=== PATIENT | male | born 1970 | race Caucasian/White ===

== ENCOUNTER 2020-10-10 09:07 | Observation (INO) ==
[2020-10-10] MEDS ORDERED: KETOROLAC 30 MG/ML VIAL IV STA (09:44)
[2020-10-10] MEDS ORDERED: ACETAMINOPHEN 1000 MG/100 ML IV IV STA (09:44)
[2020-10-10] MEDS ORDERED: SODIUM CHLORIDE 0.9% 1000ML 1,000 ML IV ONE (09:44)
[2020-10-10] MEDS ORDERED: OPTIRAY 320 100ml IV ONE (09:52)
[2020-10-10 10:09] LABS: Basophils # (auto) 0.04 K/uL (0-0.2); Basophils % (auto) 0.2 %; Eosinophils # (auto) 0.24 K/uL (0-0.5); Eosinophils % (auto) 1.3 %; Hematocrit (blood only) 29.8 % (42-52); Hemoglobin 10.3 g/dL (14.0-18.0); Immature Granulocytes # (auto) 0.21 K/uL (0.00-0.02); Immature Granulocytes % (auto) 1.2 %; Lymphocytes # (auto) 2.41 K/uL (1.2-3.4); Lymphocytes % (auto) 13.5 %; Mean Corpuscular Hemoglobin 31.7 pg (25-34); Mean Corpuscular Hgb Conc 34.6 g/dL (32-36); Mean Corpuscular Volume 91.7 fL (80-100); Mean Platelet Volume 8.6 fL (7.4-10.4); Monocytes # (auto) 1.02 K/uL (0.11-0.59); Monocytes % (auto) 5.7 %; Neutrophils # (auto) 13.96 K/uL (1.4-6.5); Neutrophils % (auto) 78.1 %; Platelet Count 391 K/uL (130-400); RDW Coefficient of Variation 13.8 % (11.5-14.5); RDW Standard Deviation 46.3 fL (36.4-46.3); Red Blood Count 3.25 M/uL (4.7-6.1); White Blood Count 17.88 K/uL (4.8-10.8)
[2020-10-10 10:37] LABS: Albumin Level 2.2 gm/dl (3.4-5.0); BUN Creatinine Ratio 17.1 (10-20); Calcium 6.8 mg/dl (8.5-10.1); Creatinine Clr Calc Pharmacy 106.7 ml/min; Est GFR (Non-African American) 104.4 ml/min; Potassium 3.4 mmol/L (3.5-5.1)
[2020-10-10 10:42] LABS: Albumin Globulin Ratio 0.6 (0.9-2); Bilirubin,Total 0.5 mg/dl (0.2-1); C Reactive Protein 2.13 mg/dl (0-0.29); Globulin 3.4 gm/dl (2.5-4.0); Total Protein 5.6 gm/dl (6.4-8.2)
--- NOTE | 2020-10-10 12:10 | CT Scan Report ---
CT OF THE NECK WITH IV CONTRAST CLINICAL HISTORY: L neck cellulitis vs abscess COMPARISON STUDY: No previous studies for comparison. TECHNIQUE: Following IV administration of 94 mL of Optiray, helical axial images of the neck were ob tained. Sagittal and coronal reconstructions were viewed. Automated exposure control was utilized f or the study. A dose lowering technique was utilized adhering to the principles of ALARA. CT DOSE: 589.60 mGy.cm FINDINGS: Visualized portions of the intracranial contents are unremarkable. Orbits are unremarkable . Mastoid air cells are clear. There is mild sinus mucosal thickening. Old fracture of the medial wal l of the right orbit is noted. Multiple absent teeth are noted. There are numerous periapical lucenci es/abscesses within the mandibular and maxillary teeth. The tonsils are enlarged. No discrete lesion is noted. Epiglottis is normal. Glottis is closed. There is no soft tissue gas within the neck. Note is made of moderate left neck infiltration centered on the left parotid gland and left sternocleidoma stoid muscle. Note is made of a 1.6 cm hypodense focus within the left sternocleidomastoid muscle on image 197 of 491 there is asymmetric enlargement of this muscle with adjacent infiltration. There is also mild asymmetric enlargement and hypervascularity of the left parotid gland. The left platysma is thickened. There is a 1.5 cm cystic peripherally enhancing focus within the left parotid gland on im age 173. Major vasculature of the neck is patent. No acute fracture or suspicious lesion is identifie d within the visualized skeletal structures. There is no peritonsillar abscess. There are multiple mi ldly enlarged left cervical lymph nodes. IMPRESSION: 1. Left neck subcutaneous infiltration and skin thickening with thickening of the left platysma consi stent with cellulitis. Asymmetric enlargement of the left sternocleidomastoid muscle which contains a 1.6 cm hypodense focus with subtle peripheral enhancement. This favors myositis with developing intr amuscular abscess. This infectious process is most likely secondary to left parotitis although a prim zheng myositis could appear similar. 2. Asymmetric enlargement and hypervascularity of the left parotid gland. This favors parotitis. 3. 1.5 cm cystic peripherally enhancing focus within the left parotid gland. This likely represents a left parotid gland lesion such as a Bur[place]'s tumor. However, no abscess or enlarged lymph node coul d appear similar. A follow-up neck CT in 3 months following resolution of this infectious process is recommended. 4. Multiple mildly enlarged left cervical lymph nodes which are likely reactive. 5. Mild tonsillar enlargement without discrete lesion although mucosal lesions may be occult by CT. ACT 112: Negative or not required by law. Electronically signed by: Colin Godfrey M.D. 10/10/2020 12:09 PM
[2020-10-10] MEDS ORDERED: AMPICILLIN/SULBACTAM SOD 3,000 MG in 0.9 % SODIUM CHLORIDE 100 ML IV STA (12:53)
[2020-10-10] MEDS ORDERED: LACTATED RINGER'S 1,000 ML IV SCH (14:15)
--- NOTE | 2020-10-10 14:27 | History & Physical Report ---
Date of Service October 10, 2020 Assessment & Plan (1) Parotid abscess: Admit- NPO until evaluated by ENT - may have sips of water and medications - Lemon wedges to assist with salivation - Unasyn 1.5 GM IV q6 hours - Tylenol and Ice for pain (2) Cellulitis: Surrounding erythema- and tenderness from parotiditis noted above - CK sent to evaluate for concern of myositis - Unasyn as above (3) Sepsis: SIRS- 2; qSOFA- 0 - Tachycardic with elevated WBC, NLR 7:1 - Blood cultures drawn prior to antibiotics - Lactate pending - CRP 2.13, ESR 59 - Hemodynamics improved on evaluation in the EMD - MAPS >65 (4) DMII (diabetes mellitus, type 2): Controlled- on oral agents - Hold Metformin/Glipizide - ACHS glucose checks- Add subq coverage if >200 and/or when patient starts eating - NPO as above (5) HLD (hyperlipidemia): Continue Atorvastatin 40 mg daily (6) HTN (hypertension): Continue Lisinopril, HCTZ - If hemodynamic status changes will hold - currently well perfused (7) Hypocalcemia: Likely related to poor intake in the setting of his oral infection - Concurrent with low ablumin, low sodium, and low albumin- Corrected 8.4 - LR at 80 ml per hour (8) Hyponatremia: As above (9) Bipolar disorder: Bipolar Vs Depression history- no records, Denies any suicidal ideations or psychological breaks - Continue Zoloft (10) Gout: No acute needs- Allopurinol on hold, follow renal function (11) Hypokalemia: Replace with potassium chloride 20 mEq p.o. x1 Follow BMP and magnesium Could be secondary to HCTZ (12) Elevated alkaline phosphatase level: Alkaline phosphatase in the 300s Could be due to to fatty liver, bony disease? Follow LFTs in the morning and if remains elevated, pursue further work-up but could be as an outpatient (13) Anemia: Hemoglobin 10.38, MCV 91 Could be chronic disease Check iron studies, folate, B12, TSH in the morning Follow-up as an outpatient (14) DVT prophylaxis: SCDs only for now in case of need for surgery tomorrow Disposition-admit to medical floor History of Present Illness Primary Care Provider: Elvia Rawls PA-C 50 YOM with past medical history of gout, HLD, HTN, DMII, chronic pain, reports continued smoker. The patient comes in to the EMD today for a week history of left sided mouth/jaw pain, he has noted that his left side of his face and neck have been more tender to chew with and to palpation. He also noticing the area of his cheek getting larger. He denies any fevers or chills, but does endorse increase in left eye lacrimation. he denies any bad tastes in mouth or drainage inside his mouth or throat. He has not tried anything to make this better. In the EMD the patient had a CT with IV contrast of his neck done, which revealed enlargement of the left sternocleidomastoid muscle, with peripheral enhancement as well as a left parotiditis. The [facility] provider has consulted ENT Dr. Huerta and he was given 3GM Unasyn in the EMD. The patient will be admitted to the hospitalist service, continue IV ABX, NPO, and following clinical response. The patient is staying in and out of hotels as he "does not want to go to his house". He has not gotten his COVID vaccine. COVID test pending in the EMD. Allergies Allergy/AdvReac Type Severity Reaction Status Date / Time No Known Allergies Allergy Unverified 10/10/20 10:18 Home Medications Medication Instructions Recorded Confirmed Type allopurinol 300 mg PO QAM 08/30/18 10/10/20 History atorvastatin 40 mg PO QAM 08/30/18 10/10/20 History gabapentin 800 mg PO TID 08/30/18 10/10/20 History glipizide 5 mg PO BID 08/30/18 10/10/20 History metformin 500 mg PO BID 08/30/18 10/10/20 History hydrochlorothiazide 12.5 mg PO QAM 10/02/20 10/10/20 History lisinopril [Zestril] 20 mg PO QAM 10/02/20 10/10/20 History sertraline [Zoloft] 100 mg PO HS 10/02/20 10/10/20 History omeprazole 40 mg PO DAILY 10/10/20 10/10/20 History Past Med/Surg History Medical History Bipolar disorder DMII (diabetes mellitus, type 2) Gout HLD (hyperlipidemia) HTN (hypertension) Family History Father Cancer Diabetes Dyslipidemia Mother Cancer Diabetes Other COPD (chronic obstructive pulmonary disease) Coronary heart disease Hypertension Social History Smoking Status: Current every day smoker Tobacco Type: Cigarettes Second Hand Exposure: Yes; Hx Alcohol Use: Yes Hx Substance Use: No Preferred Language: Egyptian Communication Ability: Effective Beliefs That Will Affect Care: Shinto marital status: Single Current Living Situation: Other Current Living Situation Comment: Lives at a local motel current occupational status: employed Feels Safe at Home: No Is there a partner from a previous relationship who is making you feel unsafe now?: No Any Concerns about Your Family Situation: No Would You Like to Speak to Someone About Your Situation: No Assistive Devices: None Review of Systems Review of Systems: REVIEW OF SYSTEMS: Constitutional: No fever, sweats or chills Eyes: (+) eye lacrimation, No diplopia, no worsening or blurred vision ENT: (+) oral pain jawpain, neck swelling, normal hearing, no trouble swallowing Respiratory: No cough, sputum, dyspnea at rest or on exertion Cardiovascular: No chest pain, tightness or palpitations Abdomen: No pain, nausea, vomiting, diarrhea or constipation Musculoskeletal: No joint pain, calf pain, swelling Neurologic: No weakness, numbness/tingling, or balance problems Psychiatric: No anxiety or depression Skin: No rash or itch Physical Exam Physical Exam: PHYSICAL EXAM: General: awake, alert, no apparent distress Head: Normocephalic, atraumatic ENT: PERRL, EOMI, no pharyngeal exudate, mucous membranes moist, pain with palpation to left face and neck, this extends to the trapezius as well. He has erythema to his sternocleidal, oral cavity without erythema or draining, but with tenderness to lateral mandible, lymph nodes noted to submandibular and anterior cervical enlargement. Hypopharynx not enlarged, voice normal and is tolerating his secretions. Oral dentition is poor. Neuro: AAO x 3, speech clear and appropriate, strength intact bilaterally 5/5, sensation intact and equal all extremities and dermatomes, no pronator drift Chest: equal rise and fall of the chest, no accessory muscle use, no heaves or thrills, Clear to auscultation, on room air, Cardiac: Regular rate and rhythm, telemetry reviewed, skin warm dry, cap refill <3 seconds, peripheral pulses +2 no JVD, no murmur, no JVD, no edema GI: NABS x 4 quadrants, soft, nontender to palpation, no rebound, guarding or tenderness : Spontaneously voiding, no pain, no CVA tenderness, Extremities: Normal inspection, no peripheral edema or erythema, calfs nontender to palpation Psych: Normal mood and affect Skin: no rash or erythema Results & Data Results & Data ([facility]) Vital Signs (Past 12 Hours) Vital Signs Temp Pulse Pulse Resp BP BP Pulse Ox 10/10/20 12:20 89 18 122/93 99 10/10/20 10:51 90 18 115/86 100 10/10/20 09:10 36.5 C 110 H 20 116/95 99 Laboratory Results Abnormal lab results 10/10/20 10/10/20 10/10/20 Range/Units 09:57 09:57 09:57 WBC 17.88 H (4.8-10.8) K/uL RBC 3.25 L (4.7-6.1) M/uL Hgb 10.3 L (14.0-18.0) g/dL Hct 29.8 L (42-52) % Neut # (Auto) 13.96 H (1.4-6.5) K/uL Bracken # (Auto) 1.02 H (0.11-0.59) K/uL Immature Gran # (Auto) 0.21 H (0.00-0.02) K/uL ESR 59 H (0-15) mm/hr Sodium 131 L (136-145) mmol/L Potassium 3.4 L (3.5-5.1) mmol/L Carbon Dioxide 20 L (21-32) mmol/L Glucose 102 H (70-99) mg/dl Calcium 6.8 L (8.5-10.1) mg/dl Alkaline Phosphatase 325 H (45-117) U/L C-Reactive Protein 2.13 H (0-0.29) mg/dl Total Protein 5.6 L (6.4-8.2) gm/dl Albumin 2.2 L (3.4-5.0) gm/dl Albumin/Globulin Ratio 0.6 L (0.9-2) Diagnostic Findings Soft Tissue Neck CT 10/10/20 09:42 CT OF THE NECK WITH IV CONTRAST CLINICAL HISTORY: L neck cellulitis vs abscess COMPARISON STUDY: No previous studies for comparison. TECHNIQUE: Following IV administration of 94 mL of Optiray, helical axial images of the neck were obtained. Sagittal and coronal reconstructions were viewed. Automated exposure control was utilized for the study. A dose lowering technique was utilized adhering to the principles of ALARA. CT DOSE: 589.60 mGy.cm FINDINGS: Visualized portions of the intracranial contents are unremarkable. Orbits are unremarkable. Mastoid air cells are clear. There is mild sinus mucosal thickening. Old fracture of the medial wall of the right orbit is noted. Multiple absent teeth are noted. There are numerous periapical lucencies/abscesses within the mandibular and maxillary teeth. The tonsils are enlarged. No discrete lesion is noted. Epiglottis is normal. Glottis is closed. There is no soft tissue gas within the neck. Note is made of moderate left neck infiltration centered on the left parotid gland and left sternocleidomastoid muscle. Note is made of a 1.6 cm hypodense focus within the left sternocleidomastoid muscle on image 197 of 491 there is asymmetric enlargement of this muscle with adjacent infiltration. There is also mild asymmetric enlargement and hypervascularity of the left parotid gland. The left platysma is thickened. There is a 1.5 cm cystic peripherally enhancing focus within the left parotid gland on image 173. Major vasculature of the neck is patent. No acute fracture or suspicious lesion is identified within the visualized skeletal structures. There is no peritonsillar abscess. There are multiple mildly enlarged left cervical lymph nodes. IMPRESSION: 1. Left neck subcutaneous infiltration and skin thickening with thickening of the left platysma consistent with cellulitis. Asymmetric enlargement of the left sternocleidomastoid muscle which contains a 1.6 cm hypodense focus with subtle peripheral enhancement. This favors myositis with developing intramuscular abscess. This infectious process is most likely secondary to left parotitis although a primary myositis could appear similar. 2. Asymmetric enlargement and hypervascularity of the left parotid gland. This f avors parotitis. 3. 1.5 cm cystic peripherally enhancing focus within the left parotid gland. This likely represents a left parotid gland lesion such as a Rigoberto's tumor. However, no abscess or enlarged lymph node could appear similar. A follow-up neck CT in 3 months following resolution of this infectious process is recommended. 4. Multiple mildly enlarged left cervical lymph nodes which are likely reactive. 5. Mild tonsillar enlargement without discrete lesion although mucosal lesions may be occult by CT. Electronically signed by: Colin Godfrey M.D. 10/10/2020 12:09 PM Medications Administered Discontinued Medications Acetaminophen (Acetaminophen 1000 Mg/100 Ml Iv) 1,000 mg IV NOW STA Stop: 10/10/20 09:45 Last Admin: 10/10/20 10:03 Dose: 1,000 mg Documented by: [id number] Sodium Chloride (Nss 1000ml) 1,000 mls @ 999 mls/hr IV .Q1H1M ONE Stop: 10/10/20 10:44 Last Infusion: 10/10/20 10:54 Dose: 0 mls/hr Documented by: [id number] Admin: 10/10/20 10:00 Dose: 999 mls/hr Documented by: [id number] Ampicillin Sodium/Sulbactam Sodium 3,000 mg/ Sodium Chloride 108 mls @ 200 mls/hr IV NOW STA; Protocol Stop: 10/10/20 13:25 Last Admin: 10/10/20 13:33 Dose: 200 mls/hr Documented by: [id number] Ioversol (Optiray 320 100ml) 94 ml IV ONCE ONE Stop: 10/10/20 09:53 Last Admin: 10/10/20 09:53 Dose: 94 ml Documented by: [id number] Ketorolac Tromethamine (Ketorolac 30 Mg/Ml Vial) 30 mg IV NOW STA Stop: 10/10/20 09:45 Last Admin: 10/10/20 10:03 Dose: 30 mg Documented by: [id number] ECG Additional Comments: Pending at time of admission Code Status & VTE Plan Code Status CODE: FULL VTE: SCD's, Heparin 5000 units BID VTE Prophylaxis Plan VTE Prophylaxis will be ordered: Yes Supervising Physician Co-Signing Physician Notes KINDERGARTNER Supervision note: I have personally seen and examined the patient and discussed and verified the sampson points of the history and physical along with the plan with JADEN Flores with the following exceptions and/or additions: Patient presents with worsening left-sided face and neck pain and swelling. He denies any fevers or chills at home. He has not been to a dentist in 5 years and he continues to smoke daily. History and ROS reviewed as above Vitals reviewed Gen: AAOx3, NAD HEENT: Anicteric sclerae, EOMI, left-sided neck exquisitely tender with induration and palpable mass in the left neck and overlying erythema, oropharynx with missing dentition CV: RRR no mgr nl S1S2 Pulm: CTAB no wcr Abd: +BS soft NT ND no masses or hernias Ext: No edema, no calf tenderness Skin: No rashes, warm/dry Neuro: Full strength throughout Laboratory values and imaging reviewed 50-year-old male here with history as above, with left sided parotid mass and left-sided myositis and possibly developing intramuscular abscess. Continue with IV antibiotics as above Pain control with Tylenol, ice packs Other work-up as above Appreciate ENT consultation He should follow-up with a dentist or oral surgeon after discharge for dental abscesses PG Care Time/CCT Total # of Minutes Spent Total Time Spent with Patient: Total time spent is greater than 50% in coordination of care (as documented) at patient's floor/unit and/or counseling patient: Coding Level of Care Code 21060 Initial Inpt Care Lvl 3 Diagnoses Parotid abscess K11.3 Cellulitis L03.221 Site of cellulitis: neck Sepsis A41.9 Sepsis acute organ dysfunction status: without acute organ dysfunction Sepsis type: sepsis due to unspecified organism DMII (diabetes mellitus, type 2) E11.9 Diabetes mellitus complication status: without complication Diabetes mellitus intermediate project manager insulin use: without group home use HLD (hyperlipidemia) E78.5 Hyperlipidemia type: unspecified HTN (hypertension) I10 Hypertension type: essential hypertension Hypocalcemia E83.51 Hyponatremia E87.1 Bipolar disorder F31.9 Active/Remission status: remission status unspecified Gout M10.00 Chronicity: unspecified Gout etiology: idiopathic Gout site: unspecified site Hypokalemia E87.6 Elevated alkaline phosphatase level R74.8 Anemia D64.9 DVT prophylaxis Z29.9 (1) Gout Chronicity: unspecified Gout etiology: idiopathic Gout site: unspecified site Qualified Code(s): M10.00 - Idiopathic gout, unspecified site (2) DMII (diabetes mellitus, type 2) Diabetes mellitus complication status: without complication Diabetes mellitus group home insulin use: without group home use Qualified Code(s): E11.9 - Type 2 diabetes mellitus without complications (3) Bipolar disorder Active/Remission status: remission status unspecified Qualified Code(s): F31.9 - Bipolar disorder, unspecified (4) Cellulitis Site of cellulitis: neck Qualified Code(s): L03.221 - Cellulitis of neck (5) HLD (hyperlipidemia) Hyperlipidemia type: unspecified Qualified Code(s): E78.5 - Hyperlipidemia, unspecified (6) Sepsis Sepsis acute organ dysfunction status: without acute organ dysfunction Sepsis type: sepsis due to unspecified organism Qualified Code(s): A41.9 - Sepsis, unspecified organism (7) HTN (hypertension) Hypertension type: essential hypertension Qualified Code(s): I10 - Essential (primary) hypertension
--- NOTE | 2020-10-10 15:34 | Emergency Department Note ---
History of Present Illness General Chief complaint: Facial Injury/Pain Stated complaint: SWOLLEN NECK/LUMP FOR A WEEK Time Seen by Provider: 10/10/20 09:22 History of Present Illness Maximum Pain Intensity: 9 50-year-old male who presents to the emergency department with complaint of redn ess and swelling along the left side of his neck/jaw region. The patient reports that he noticed swelling 1 week ago, however reports redness and pain over the past 4 to 5 days. The patient denies any difficulty swallowing, or fever/chills. The patient rates his discomfort a 5 out of 10. The patient reports that his immunizations are up-to-date. Home Medications Medication Instructions Recorded Confirmed Type allopurinol 300 mg PO QAM 08/30/18 10/10/20 History atorvastatin 40 mg PO QAM 08/30/18 10/10/20 History gabapentin 800 mg PO TID 08/30/18 10/10/20 History glipizide 5 mg PO BID 08/30/18 10/10/20 History metformin 500 mg PO BID 08/30/18 10/10/20 History hydrochlorothiazide 12.5 mg PO QAM 10/02/20 10/10/20 History lisinopril [Zestril] 20 mg PO QAM 10/02/20 10/10/20 History sertraline [Zoloft] 100 mg PO HS 10/02/20 10/10/20 History omeprazole 40 mg PO DAILY 10/10/20 10/10/20 History Allergies Allergy/AdvReac Type Severity Reaction Status Date / Time No Known Allergies Allergy Unverified 10/10/20 10:18 Past Med/Surg History Medical History Bipolar disorder DMII (diabetes mellitus, type 2) Gout HLD (hyperlipidemia) HTN (hypertension) Family History Father Cancer Diabetes Dyslipidemia Mother Cancer Diabetes Other COPD (chronic obstructive pulmonary disease) Coronary heart disease Hypertension Social History Smoking Status: Current every day smoker Tobacco Type: Cigarettes Second Hand Exposure: Yes; Hx Alcohol Use: Yes Hx Substance Use: No Preferred Language: Argentine marital status: Single Current Living Situation: Homeless Current Living Situation Comment: Lives at a local motel current occupational status: employed Feels Safe at Home: Yes Review of Systems 10 system review was performed and was negative except for pertinent positives and negatives as indicated in history of present illness Physical Exam Vital Signs Vital Signs - 24 hr 10/10/20 09:10 10/10/20 10:51 10/10/20 12:20 Temperature 36.5 C Temperature Source Temporal Artery Scan Pulse Rate 110 H Pulse Rate [Finger] 90 89 Pulse Rhythm Regular Pulse Rhythm [Finger] Regular Pulse Strength Normal Pulse Strength [Finger] Normal Respiratory Rate 20 18 18 Respiratory Effort / Characteristics Non-Labored Spontaneous Non-Labored Spontaneous Respiratory Depth Normal Normal Respiratory Pattern Regular Blood Pressure 116/95 Blood Pressure [Left Arm] 115/86 122/93 Blood Pressure Mean 102 Blood Pressure Mean [Left Arm] 95 102 Blood Pressure Position [Left Arm] Lying Pulse Oximetry 99 100 99 Oxygen Delivery Method Room Air Room Air Room Air Sepsis Recent Fever Within 48 Hours No Sepsis New/Unexplained Change in Mental Status No Sepsis Action Taken by Nursing No Action Required CONSTITUTIONAL: Healthy and well nourished. Patient does not appear in any acute distress. HEENT: Examination shows notable erythema, edema and induration of the tissue behind the left mandible angle. The area is approximately the size of a tennis ball. No pustules or other cutaneous wounds noted. Patient is able to open the mouth without any obvious gingival erythema, fluctuance or pointing. No evidence for Remy's angina or retropharyngeal abscess. Negative trismus. Pupils equal, round and reactive. NECK: No tenderness to palpation through the posterior cervical musculature or central thoracolumbar spine. LYMPHATICS: Right anterior cervical chain adenopathy noted. RESPIRATORY: Clear to auscultation bilaterally with no wheezing, crackles, rhonchi or stridor. CARDIOVASCULAR: Regular rate and rhythm with no murmurs, rubs or gallops. GASTROINTESTINAL: Bowel sounds present in all quadrants. Soft and nontender to palpation. MUSCULOSKELETAL: Full range of motion of all joints without discomfort. INTEGUMENTARY: No rash or other significant dermatologic conditions noted. HEMATOLOGIC: No ecchymosis or petechiae. PSYCHIATRIC: Positive affect. NEUROLOGIC: Facial sensations are intact. Course Course Patient history and physical exam were performed. Nurses notes were reviewed. Vital signs were reviewed, showing a mild tachycardia. The patient is afebrile and normotensive. IV access was established, and labs were drawn. The patient was administered IV Tylenol and Toradol, and hydrated with a liter of normal saline. Review of labs shows a leukocytosis with a white count of 17.88, with left shift and bandemia. Sed rate and CRP are also markedly elevated. Review of CMP shows a mild hyponatremia of 131 and hypokalemia of 3.4. CT with IV contrast of the neck shows a probable parotid abscess/parotiditis. The patient's case was further discussed with Dr. Noguera, ED attending physician, who recommended consultation with ENT on-call. The case was then further discussed with Dr. Huerta, who recommended hospitalist evaluation and admission for IV antibiotics. The case was then further discussed with Dr. Clancy, [facility] hospitalist. I did place an order for IV Unasyn. COVID-19 PCR testing was negative. Administered Medications Lactated Ringer's (Lr) 1,000 mls @ 80 mls/hr IV .[id number] TALON Stop: 11/09/20 14:14 Last Admin: 10/10/20 16:36 Dose: 80 mls/hr Documented by: [id number] Discontinued Medications Acetaminophen (Acetaminophen 1000 Mg/100 Ml Iv) 1,000 mg IV NOW STA Stop: 10/10/20 09:45 Last Admin: 10/10/20 10:03 Dose: 1,000 mg Documented by: [id number] Sodium Chloride (Nss 1000ml) 1,000 mls @ 999 mls/hr IV .[id number] ONE Stop: 10/10/20 10:44 Last Infusion: 10/10/20 10:54 Dose: 0 mls/hr Documented by: [id number] Admin: 10/10/20 10:00 Dose: 999 mls/hr Documented by: [id number] Ampicillin Sodium/Sulbactam Sodium 3,000 mg/ Sodium Chloride 108 mls @ 200 mls/hr IV NOW STA; Protocol Stop: 10/10/20 13:25 Last Infusion: 10/10/20 14:10 Dose: 0 mls/hr Documented by: [id number] Admin: 10/10/20 13:33 Dose: 200 mls/hr Documented by: [id number] Ioversol (Optiray 320 100ml) 94 ml IV ONCE ONE Stop: 10/10/20 09:53 Last Admin: 10/10/20 09:53 Dose: 94 ml Documented by: [id number] Ketorolac Tromethamine (Ketorolac 30 Mg/Ml Vial) 30 mg IV NOW STA Stop: 10/10/20 09:45 Last Admin: 10/10/20 10:03 Dose: 30 mg Documented by: [id number] Medical Decision Making Medical Records Attestation: I reviewed the patient's medical records. Home Medications Current Medication List: was personally reviewed by me Laboratory Data Attestation: I reviewed the patient's lab results. Result diagrams: 10/10/20 09:57 10/10/20 09:57 Lab Results 10/10/20 10/10/20 10/10/20 Range/Units 09:57 09:57 09:57 WBC 17.88 H (4.8-10.8) K/uL RBC 3.25 L (4.7-6.1) M/uL Hgb 10.3 L (14.0-18.0) g/dL Hct 29.8 L (42-52) % MCV 91.7 (80-100) fL MCH 31.7 (25-34) pg MCHC 34.6 (32-36) g/dL RDW Std Deviation 46.3 (36.4-46.3) fL RDW Coeff of Stiven 13.8 (11.5-14.5) % Plt Count 391 (130-400) K/uL MPV 8.6 (7.4-10.4) fL Immature Gran % (Auto) 1.2 % Neut % (Auto) 78.1 % Lymph % (Auto) 13.5 % Ramsey % (Auto) 5.7 % Eos % (Auto) 1.3 % Baso % (Auto) 0.2 % Neut # (Auto) 13.96 H (1.4-6.5) K/uL Lymph # (Auto) 2.41 (1.2-3.4) K/uL Ramsey # (Auto) 1.02 H (0.11-0.59) K/uL Eos # (Auto) 0.24 (0-0.5) K/uL Baso # (Auto) 0.04 (0-0.2) K/uL Immature Gran # (Auto) 0.21 H (0.00-0.02) K/uL ESR 59 H (0-15) mm/hr Sodium 131 L (136-145) mmol/L Potassium 3.4 L (3.5-5.1) mmol/L Chloride 103 (98-107) mmol/L Carbon Dioxide 20 L (21-32) mmol/L Anion Gap 8.0 (3-11) BUN 14 (7-18) mg/dl Creatinine 0.81 (0.6-1.4) mg/dl Est Cr Clr Drug Dosing 106.7 ml/min Est GFR ( Amer) 121.0 ml/min Est GFR (Non-Af Amer) 104.4 ml/min BUN/Creatinine Ratio 17.1 (10-20) Glucose 102 H (70-99) mg/dl Calcium 6.8 L (8.5-10.1) mg/dl Total Bilirubin 0.5 (0.2-1) mg/dl AST 26 (15-37) U/L ALT 41 (12-78) U/L Alkaline Phosphatase 325 H (45-117) U/L Total Creatine Kinase (39-308) U/L C-Reactive Protein 2.13 H (0-0.29) mg/dl Total Protein 5.6 L (6.4-8.2) gm/dl Albumin 2.2 L (3.4-5.0) gm/dl Globulin 3.4 (2.5-4.0) gm/dl Albumin/Globulin Ratio 0.6 L (0.9-2) COVID-19 Eval Order SARS-CoV-2 (PCR) (Negative) 10/10/20 10/10/20 10/10/20 Range/Units 09:57 13:14 13:14 WBC (4.8-10.8) K/uL RBC (4.7-6.1) M/uL Hgb (14.0-18.0) g/dL Hct (42-52) % MCV (80-100) fL MCH (25-34) pg MCHC (32-36) g/dL RDW Std Deviation (36.4-46.3) fL RDW Coeff of Stiven (11.5-14.5) % Plt Count (130-400) K/uL MPV (7.4-10.4) fL Immature Gran % (Auto) % Neut % (Auto) % Lymph % (Auto) % Ramsey % (Auto) % Eos % (Auto) % Baso % (Auto) % Neut # (Auto) (1.4-6.5) K/uL Lymph # (Auto) (1.2-3.4) K/uL Ramsey # (Auto) (0.11-0.59) K/uL Eos # (Auto) (0-0.5) K/uL Baso # (Auto) (0-0.2) K/uL Immature Gran # (Auto) (0.00-0.02) K/uL ESR (0-15) mm/hr Sodium (136-145) mmol/L Potassium (3.5-5.1) mmol/L Chloride (98-107) mmol/L Carbon Dioxide (21-32) mmol/L Anion Gap (3-11) BUN (7-18) mg/dl Creatinine (0.6-1.4) mg/dl Est Cr Clr Drug Dosing ml/min Est GFR ( Amer) ml/min Est GFR (Non-Af Amer) ml/min BUN/Creatinine Ratio (10-20) Glucose (70-99) mg/dl Calcium (8.5-10.1) mg/dl Total Bilirubin (0.2-1) mg/dl AST (15-37) U/L ALT (12-78) U/L Alkaline Phosphatase (45-117) U/L Total Creatine Kinase 64 (39-308) U/L C-Reactive Protein (0-0.29) mg/dl Total Protein (6.4-8.2) gm/dl Albumin (3.4-5.0) gm/dl Globulin (2.5-4.0) gm/dl Albumin/Globulin Ratio (0.9-2) COVID-19 Eval Order Covid19 at [facility] SARS-CoV-2 (PCR) NEGATIVE (Negative) Imaging Data Attestation: I personally reviewed and interpreted this imaging study as follows: My Impression: My interpretation of a CT with IV contrast of the neck shows what appears to be parotid abscess versus sternocleidomastoid muscle abscess. Further details are summarized in the following radiologist report: Radiologist's Impression: Soft Tissue Neck CT 10/10/20 09:42 CT OF THE NECK WITH IV CONTRAST CLINICAL HISTORY: L neck cellulitis vs abscess COMPARISON STUDY: No previous studies for comparison. TECHNIQUE: Following IV administration of 94 mL of Optiray, helical axial images of the neck were obtained. Sagittal and coronal reconstructions were viewed. Automated exposure control was utilized for the study. A dose lowering technique was utilized adhering to the principles of ALARA. CT DOSE: 589.60 mGy.cm FINDINGS: Visualized portions of the intracranial contents are unremarkable. Orbits are unremarkable. Mastoid air cells are clear. There is mild sinus mucosal thickening. Old fracture of the medial wall of the right orbit is noted. Multiple absent teeth are noted. There are numerous periapical lucencies/abscesses within the mandibular and maxillary teeth. The tonsils are enlarged. No discrete lesion is noted. Epiglottis is normal. Glottis is closed. There is no soft tissue gas within the neck. Note is made of moderate left neck infiltration centered on the left parotid gland and left sternocleidomastoid muscle. Note is made of a 1.6 cm hypodense focus within the left sternocleidomastoid muscle on image 197 of 491 there is asymmetric enlargement of this muscle with adjacent infiltration. There is also mild asymmetric e nlargement and hypervascularity of the left parotid gland. The left platysma is thickened. There is a 1.5 cm cystic peripherally enhancing focus within the left parotid gland on image 173. Major vasculature of the neck is patent. No acute fracture or suspicious lesion is identified within the visualized skeletal structures. There is no peritonsillar abscess. There are multiple mildly enlarged left cervical lymph nodes. IMPRESSION: 1. Left neck subcutaneous infiltration and skin thickening with thickening of the left platysma consistent with cellulitis. Asymmetric enlargement of the left sternocleidomastoid muscle which contains a 1.6 cm hypodense focus with subtle peripheral enhancement. This favors myositis with developing intramuscular abscess. This infectious process is most likely secondary to left parotitis although a primary myositis could appear similar. 2. Asymmetric enlargement and hypervascularity of the left parotid gland. This favors parotitis. 3. 1.5 cm cystic peripherally enhancing focus within the left parotid gland. This likely represents a left parotid gland lesion such as a [place]'s tumor. However, no abscess or enlarged lymph node could appear similar. A follow-up neck CT in 3 months following resolution of this infectious process is recommended. 4. Multiple mildly enlarged left cervical lymph nodes which are likely reactive. 5. Mild tonsillar enlargement without discrete lesion although mucosal lesions may be occult by CT. ACT 112: Negative or not required by law. Electronically signed by: Colin Godfrey M.D. 10/10/2020 12:09 PM Blood Pressure Blood Pressure Findings: Normal blood pressure MDM Narrative Patient presents to the emergency department for evaluation of swelling, redness and pain of the region behind his left jaw/neck region. CT imaging today does show concerning findings of cellulitis with possible abscess formation of the parotid gland and sternocleidomastoid muscle. The case was discussed with Dr. Huerta, ENT physician on-call, who agrees with admission and IV antibiotic treatment. The patient is afebrile, but does have a notable leukocytosis. CT imaging, as well as physical exam findings, are not consistent with Ludewig's angina or retropharyngeal abscess. Impression & Plan Parotid abscess, Abscess of neck, Cellulitis of neck Discharge Plan Visit Data Chief Complaint: Facial Injury/Pain Stated Complaint: SWOLLEN NECK/LUMP FOR A WEEK ED Provider: Reece Noguera ED Midlevel Provider: Honorio Smith Discharge Problem: Parotid abscess, Abscess of neck, Cellulitis of neck Patient Disposition: Admitted As Inpatient Discharge Instructions Interventions: ED Discharge Assessment Last Done: 10/10/20 15:56
[2020-10-10] MEDS ORDERED: CARBOHYDRATES FOR HYPOGLYCEMIA PO PRN (16:22)
[2020-10-10] MEDS ORDERED: ACETAMINOPHEN 325 MG TAB PO PRN ×2 (16:22→19:08)
[2020-10-10] MEDS ORDERED: GLUCOSE 10 TABS/TUBE PO PRN (16:22)
[2020-10-10] MEDS ORDERED: GLUCOSE 40% GEL 15 GM TUBE PO PRN (16:22)
[2020-10-10] MEDS ORDERED: DEXTROSE 50% 50 ML SYRINGE IV PRN (16:22)
[2020-10-10] MEDS ORDERED: GLUCAGON FOR INJ 1 MG VIAL SQ PRN (16:22)
[2020-10-10] MEDS ORDERED: AMPICILLIN/SULBACTAM SOD 1,500 MG in 0.9 % SODIUM CHLORIDE 100 ML IV SCH (20:00)
--- NOTE | 2020-10-10 20:12 | ENT Consultation ---
Date of Consultation October 10, 2020 Assessment & Plan (1) Parotid abscess: The parotid does not appear to be as tender as the left SCM. He is alert and oriented and not toxic at this point with temp of 36.4. (2) Abscess of neck: CT demonstrated lesion inside the left upper SCM. I cannot feel fluctuance at this point although it is tender and moderately firm and swollen. We will see how he responds to IV antibiotics in the a.m. If no response will need needle aspiration and/or incision and drainage. (3) Cellulitis of neck: History of Present Illness Reason for Consultation: 50-year-old gentleman with acute onset of left neck swelling and pain and tenderness of 7 to 10 days increasingly severe over the last 24 hours presenting to the emergency room with tachycardia and elevated white count and elevated sed rate. CT scan documented left SCM lesion with possible myositis plus cystic lesion within the left parotid. Attending Physician: Sheila Clancy MD Allergies Allergy/AdvReac Type Severity Reaction Status Date / Time No Known Allergies Allergy Unverified 10/10/20 10:18 Home Medications Medication Instructions Recorded Confirmed Type allopurinol 300 mg PO QAM 08/30/18 10/10/20 History atorvastatin 40 mg PO QAM 08/30/18 10/10/20 History gabapentin 800 mg PO TID 08/30/18 10/10/20 History glipizide 5 mg PO BID 08/30/18 10/10/20 History metformin 500 mg PO BID 08/30/18 10/10/20 History hydrochlorothiazide 12.5 mg PO QAM 10/02/20 10/10/20 History lisinopril [Zestril] 20 mg PO QAM 10/02/20 10/10/20 History sertraline [Zoloft] 100 mg PO HS 10/02/20 10/10/20 History omeprazole 40 mg PO DAILY 10/10/20 10/10/20 History Patient History Medical History Bipolar disorder DMII (diabetes mellitus, type 2) Gout HLD (hyperlipidemia) HTN (hypertension) Family History Father Cancer Diabetes Dyslipidemia Mother Cancer Diabetes Other COPD (chronic obstructive pulmonary disease) Coronary heart disease Hypertension Social History Smoking Status: Current every day smoker Tobacco Type: Cigarettes Second Hand Exposure: Yes; Hx Alcohol Use: Yes Hx Substance Use: No Preferred Language: Occitan Communication Ability: Effective Beliefs That Will Affect Care: Faith marital status: Single Current Living Situation: Other Current Living Situation Comment: Lives at a local motel current occupational status: employed Feels Safe at Home: No Is there a partner from a previous relationship who is making you feel unsafe now?: No Any Concerns about Your Family Situation: No Would You Like to Speak to Someone About Your Situation: No Assistive Devices: None Physical Exam Constitutional: WD/WN, vitals as above Eyes: PERRL, conjunctivae normal, anicteric sclerae ENMT: external ear and nose normal, oropharynx normal Neck: Firm indurated left upper SCM, cannot appreciate fluctuance, tender, 4 cm with erythema Respiratory: normal respiratory effort, lungs clear to auscultation Cardiovascular: RRR, no murmur, no edema Results & Data ([facility]) Vital Signs (Past 12 Hours) Vital Signs Temp Pulse Pulse Resp BP BP Pulse Ox 10/10/20 17:49 36.4 C L 89 18 129/74 100 10/10/20 15:32 81 20 130/95 100 10/10/20 12:20 89 18 122/93 99 10/10/20 10:51 90 18 115/86 100 10/10/20 09:10 36.5 C 110 H 20 116/95 99
[2020-10-10] MEDS ORDERED: NICOTINE 14 MG/24 HR PATCH TD SCH (20:30)
[2020-10-10] MEDS ORDERED: POTASSIUM CHLORIDE CRTAB 20 MEQ TABCR PO STA (20:35)
[2020-10-10] MEDS ORDERED: MELATONIN 3 MG TAB PO PRN (20:38)
[2020-10-10] MEDS ORDERED: MoRPHine SULFATE 2 MG/ML CARP IV STA (20:54)
[2020-10-10] MEDS ORDERED: GABAPENTIN 800 MG TAB PO SCH (21:00)
[2020-10-10] MEDS ORDERED: SERTRALINE HCL 100 MG TABLET PO SCH (21:00)
--- NOTE | 2020-10-10 21:10 | Communication Note ---
Date of Service: October 10, 2020 At 8:09 pm night team was contacted by nursing staff, as patient requested a nicotine patch. A order was placed for a 14mg transdermal nicotine patch. At 8:38 pm night team was contacted by nursing staff, as patient requested ativan for sleep. Patient's home medication list was reviewed - he is not on any benzodiazepine therapy. I did place order for melatonin. At 8:51 pm night team was contacted by nursing staff, stating patient was requesting to leave AMA. When I spoke with nurse over the phone, patient was reportedly in pain and becoming increasingly agitated. I placed a stat order for 2mg IV morphine. I then went to bedside - patient was standing outside his room shouting in hallway - I attempted to verbally descalate him - but ultimately he expressed a desire to sign out AMA. Patient signed paperwork.
--- NOTE | 2020-10-10 21:54 | Discharge Summary ---
Date of Service October 10, 2020 Admission HPI Per Admitting Provider See admission HPI performed on same day of service Discharge Data Vaccinations Patient left AMA- see resident's communication note. Consultations 10/10/20 12:53 ED Decision to Admit Stat 10/10/20 16:22 Consult Otolaryngology (Head and Neck) Routine Hospital Course (1) Parotid abscess: Admit- NPO until evaluated by ENT - may have sips of water and medications - Lemon wedges to assist with salivation - Unasyn 1.5 GM IV q6 hours - Tylenol and Ice for pain (2) Cellulitis: Surrounding erythema- and tenderness from parotiditis noted above - CK sent to evaluate for concern of myositis - Unasyn as above (3) Sepsis: SIRS- 2; qSOFA- 0 - Tachycardic with elevated WBC, NLR 7:1 - Blood cultures drawn prior to antibiotics - Lactate pending - CRP 2.13, ESR 59 - Hemodynamics improved on evaluation in the EMD - MAPS >65 (4) DMII (diabetes mellitus, type 2): Controlled- on oral agents - Hold Metformin/Glipizide - [facility] glucose checks- Add subq coverage if >200 and/or when patient starts eating - NPO as above (5) HLD (hyperlipidemia): Continue Atorvastatin 40 mg daily (6) HTN (hypertension): Continue Lisinopril, HCTZ - If hemodynamic status changes will hold - currently well perfused (7) Hypocalcemia: Likely related to poor intake in the setting of his oral infection - Concurrent with low ablumin, low sodium, and low albumin- Corrected 8.4 - LR at 80 ml per hour (8) Hyponatremia: As above (9) Bipolar disorder: Bipolar Vs Depression history- no records, Denies any suicidal ideations or psychological breaks - Continue Zoloft (10) Gout: No acute needs- Allopurinol on hold, follow renal function (11) Hypokalemia: Replace with potassium chloride 20 mEq p.o. x1 Follow BMP and magnesium Could be secondary to HCTZ (12) Elevated alkaline phosphatase level: Alkaline phosphatase in the 300s Could be due to to fatty liver, bony disease? Follow LFTs in the morning and if remains elevated, pursue further work-up but could be as an outpatient (13) Anemia: Hemoglobin 10.38, MCV 91 Could be chronic disease Check iron studies, folate, B12, TSH in the morning Follow-up as an outpatient (14) DVT prophylaxis: SCDs only for now in case of need for surgery tomorrow LEFT AMA on [id number]. Supervising Physician Co-Signing Physician Notes FLAGGER Supervision note: I have personally seen and examined the patient and discussed and verified the sampson points of the discharge summary along with the plan with JADEN Flores with the following exceptions and/or additions: None See my physician supervision note from H&P on same DOS Coding Level of Care Code Admit/DC Same Day >8hr Level 1 Diagnoses Parotid abscess K11.3 Cellulitis L03.221 Site of cellulitis: neck Sepsis A41.9 Sepsis acute organ dysfunction status: without acute organ dysfunction Sepsis type: sepsis due to unspecified organism DMII (diabetes mellitus, type 2) E11.9 Diabetes mellitus complication status: without complication Diabetes mellitus detention insulin use: without certified technician use HLD (hyperlipidemia) E78.5 Hyperlipidemia type: unspecified HTN (hypertension) I10 Hypertension type: essential hypertension Hypocalcemia E83.51 Hyponatremia E87.1 Bipolar disorder F31.9 Active/Remission status: remission status unspecified Gout M10.00 Chronicity: unspecified Gout etiology: idiopathic Gout site: unspecified site Hypokalemia E87.6 Elevated alkaline phosphatase level R74.8 Anemia D64.9 DVT prophylaxis Z29.9
[2020-10-11] MEDS ORDERED: PANTOprazole 40 MG TAB PO SCH (09:00)
[2020-10-11] MEDS ORDERED: hydroCHLOROthiazide 25 MG TAB PO SCH (09:00)
[2020-10-11] MEDS ORDERED: ATORVASTATIN 40 MG TAB PO SCH (09:00)
[2020-10-11] MEDS ORDERED: lisinopril 20 MG TAB PO SCH (09:00)
--- NOTE | 2020-10-11 16:02 | Electrocardiogram Report ---
Test Reason : Blood Pressure : / mmHG Vent. Rate : 080 BPM Atrial Rate : 080 BPM P-R Int : 174 ms QRS Dur : 086 ms QT Int : 372 ms P-R-T Axes : 060 010 042 degrees QTc Int : 429 ms Normal sinus rhythm Possible Left atrial enlargement Borderline ECG When compared with ECG of 02-OCT-2020 07:52, No significant change was found Confirmed by Clemente Reyes ([id number]) on 10/11/2020 4:01:58 PM Referred By: REFERRED SELF Confirmed By:Clemente Reyes
== END 2020-10-10 21:21 | disposition left against medical advice (07) | DRG 872 ==
LOC: ED 09:07 → 3N 13:32 → INTOOBSV 13:32 → 3N 15:56
DX: R74.8 Abnormal levels of other serum enzymes; A41.9 Sepsis, unspecified organism; M60.9 Myositis, unspecified; E11.9 Type 2 diabetes mellitus without complications; F17.210 Nicotine dependence, cigarettes, uncomplicated; Z79.84 Long term (current) use of oral hypoglycemic drugs; Z79.899 Other long term (current) drug therapy; E83.51 Hypocalcemia; E87.6 Hypokalemia; K11.3 Abscess of salivary gland; L03.221 Cellulitis of neck; I10 Essential (primary) hypertension; Z20.822 Contact with and (suspected) exposure to COVID-19; E78.5 Hyperlipidemia, unspecified; M10.9 Gout, unspecified; F31.9 Bipolar disorder, unspecified

== ENCOUNTER 2020-10-11 00:27 | Observation (INO) ==
[2020-10-11] MEDS ORDERED: SODIUM CHLORIDE 0.9% 1000ML 1,000 ML IV ONE (01:20)
[2020-10-11] MEDS ORDERED: MoRPHine SULFATE 10 MG/ML CARP/VIAL IV STA (01:20)
[2020-10-11] MEDS ORDERED: NICOTINE 14 MG/24 HR PATCH TD STA (01:20)
[2020-10-11] MEDS ORDERED: ONDANSETRON INJ 2 MG/ML 2 ML VIAL IV STA (01:20)
--- NOTE | 2020-10-11 01:24 | Emergency Department Note ---
Impression & Plan Abscess of parotid gland, Abscess of neck ED Provider Note Name: CHANDU ROJAS Age: 50 Sex: M Arrives Via: Ambulance Informant: Patient ED Provider: Hollis Valente MD Chief Complaint: Neck Swelling Impression: Abscess of Parotid Gland Abscess of Neck Medical Decision Makin yr old male with history DMII, Bipolar, HTN, HLD, arrives for evaluation of w orsening left neck swelling. He just left hospital a few hours ago AMA for parotid/neck abscess and returns due to return of pain. Agreeable to staying. Repeat CBC shows mild increase in leukocytosis. Blood cultures already have been sent and abx started earlier. Given further dose Unasyn and pain controlled. Hospitalist consulted early on and will admit. ENT already aware from ED visit earlier in the day and will eval for possible surgery later in morning. He is not in septic shock with normal vitals on calming down. He has no evidence of respiratory compromise at this time. Prior Medical Record and Triage/Nursing Notes reviewed by Me Additional history obtained from chart Differentials:Abscess, Cellulitis, Sepsis, Pharyngeal swelling, respiratory compromise, amongst other pathologies. Vital Signs: reviewed and remarkable for no significant abnormalities Interventions: saline lock, morphine iv, unasyn iv, nicotine patch, nss bolus Labs:Reviewed and remarkable for leukocytosis Imaging:reviewed earlier imaging Consults:Dr Ramón GRANDA Hospitalist Plan: Disposition:Hospitalization. Condition: Good History of Present Illness:50 yr old male arrives for evaluation of left neck swelling. Patient with diagnosis of parotid abscess earlier today and was to be admitted with ENT consult but left AMA due to not knowing what was happening. Notes pain has been worsening and he feels ill. No fevers, chills, syncope, chest pain, difficulty swallowing, breathing difficulty, headache, back pain, abdominal pain nor other symptoms. Notes sore left side of neck/jaw for 5 days then rapid swelling over last 2 days. Did have trauma to area about 2 weeks ago which he notes was due to falling. Admits regularly falls with bruising/contusions due to chronic gait issues and lightheaded with standing. ROS: See above HPI for pertinent positives & negatives. A total of 10 systems reviewed and were otherwise negative. Past Medical History:See Below Past Surgical History:See Below Family History:See Below Social History:Disabled, Admits occasional ETOH, 0.5 ppd smoker, no drugs Home Medications:See Below Allergies:NKDA Vitals:Blood Pressure: 122/80, Pulse 112, RR 20, T 36.4C, O2 98% on RA Physical Exam: GENERAL: Patient is anxious/uncomfortable appearing and in moderate distress. EYES: No scleral icterus, unremarkable pupils. ENT: Mucous membranes moist, no nasal congestion. NECK: Large firm erythematous swelling of left lateral neck at angle. No difficulty with oropharynx and easily see posterior pharynx. Trachea remains midline RESPIRATORY: No dyspnea. Clear to auscultation and equal bilaterally. No wheeze, no rhonchi. CARDIOVASCULAR: Tachy.No murmurs, rubs, gallops appreciated. GASTROINTESTINAL: Abdomen soft, non-tender, no peritonitis.Bowel sounds positive.No masses appreciated. BACK: No midline tenderness, no CVA tenderness EXTREMITIES: Normal motion all extremities, no cyanosis, no edema. NEUROLOGIC: Alert and oriented, no acute motor or sensory deficits, no focal weakness, cranial nerves grossly intact. SKIN: No rash, no jaundice, no diaphoresis. PSYCH: Mildly manic, tangential, denies depression/suicidal ideation GCS: 15 ED Course: Times/Reassessments: Much improved with pain control. Agreeable to hospitalization Hollis Valente MD Past Med/Surg History Medical History Bipolar disorder DMII (diabetes mellitus, type 2) Gout HLD (hyperlipidemia) HTN (hypertension) Family History Father Cancer Diabetes Dyslipidemia Mother Cancer Diabetes Other COPD (chronic obstructive pulmonary disease) Coronary heart disease Hypertension Social History Smoking Status: Current every day smoker Tobacco Type: Cigarettes Second Hand Exposure: Yes; Hx Alcohol Use: Yes Hx Substance Use: No Preferred Language: Kyrgyz Communication Ability: Effective Beliefs That Will Affect Care: None marital status: Single Current Living Situation: Other Current Living Situation Comment: hotel current occupational status: employed Feels Safe at Home: Yes Assistive Devices: None Allergies Allergies Allergy/AdvReac Type Severity Reaction Status Date / Time No Known Allergies Allergy Unverified 10/10/20 10:18 Home Meds Home Medications Medication Instructions Recorded Confirmed gabapentin 800 mg PO TID 08/30/18 10/11/20 glipizide 5 mg PO BID 08/30/18 10/11/20 hydrochlorothiazide 12.5 mg PO QAM 10/02/20 10/11/20 lisinopril [Zestril] 20 mg PO QAM 10/02/20 10/11/20 sertraline [Zoloft] 100 mg PO HS 10/02/20 10/11/20 omeprazole 40 mg PO DAILY 10/10/20 10/11/20 allopurinol 100 mg PO DAILY 10/11/20 10/11/20 atorvastatin 20 mg PO DAILY 10/11/20 10/11/20 Results & Data (ED) Vital Signs Vital Signs - 24 hr 10/11/20 00:40 Temperature 36.4 C L Temperature Source Oral Pulse Rate 112 H Respiratory Rate 20 Respiratory Effort / Characteristics Non-Labored Spontaneous Respiratory Depth Normal Blood Pressure 122/80 Blood Pressure Mean 94 Blood Pressure Position Right Lateral Pulse Oximetry 98 Oxygen Delivery Method Room Air Sepsis New/Unexplained Change in Mental Status N/A Sepsis Action Taken by Nursing No Action Required Laboratory Data Result diagrams: 10/11/20 01:35 10/11/20 01:35 Lab Results 10/11/20 10/11/20 10/11/20 Range/Units 01:35 01:35 01:35 WBC 20.74 H (4.8-10.8) K/uL RBC 3.17 L (4.7-6.1) M/uL Hgb 10.1 L (14.0-18.0) g/dL Hct 29.0 L (42-52) % MCV 91.5 (80-100) fL MCH 31.9 (25-34) pg MCHC 34.8 (32-36) g/dL RDW Std Deviation 46.0 (36.4-46.3) fL RDW Coeff of Stiven 13.8 (11.5-14.5) % Plt Count 417 H (130-400) K/uL MPV 8.9 (7.4-10.4) fL Immature Gran % (Auto) 0.5 % Neut % (Auto) 89.6 % Lymph % (Auto) 5.4 % Hardee % (Auto) 4.1 % Eos % (Auto) 0.4 % Baso % (Auto) 0.0 % Neut # (Auto) 18.57 H (1.4-6.5) K/uL Lymph # (Auto) 1.13 L (1.2-3.4) K/uL Hardee # (Auto) 0.84 H (0.11-0.59) K/uL Eos # (Auto) 0.09 (0-0.5) K/uL Baso # (Auto) 0.01 (0-0.2) K/uL Immature Gran # (Auto) 0.10 H (0.00-0.02) K/uL PT 11.8 (9.0-12.0) Seconds INR 1.2 H (0.9-1.1) APTT 25.9 (21.0-31.0) Seconds PTT Ratio 1.0 Sodium 135 L (136-145) mmol/L Potassium 3.6 (3.5-5.1) mmol/L Chloride 108 H (98-107) mmol/L Carbon Dioxide 20 L (21-32) mmol/L Anion Gap 7.0 (3-11) BUN 17 (7-18) mg/dl Creatinine 0.73 (0.6-1.4) mg/dl Est Cr Clr Drug Dosing 118.4 ml/min Est GFR ( Amer) 126.2 ml/min Est GFR (Non-Af Amer) 108.9 ml/min BUN/Creatinine Ratio 23.4 H (10-20) Glucose 91 (70-99) mg/dl Calcium 6.6 L (8.5-10.1) mg/dl C-Reactive Protein 3.17 H (0-0.29) mg/dl Administered Medications Morphine Sulfate (Morphine Sulfate 2 Mg/Ml Carp) 2 mg IV Q30M PRN PRN Reason: Pain Stop: 10/25/20 02:49 Last Admin: 10/11/20 07:12 Dose: 2 mg Documented by: [id number] Discontinued Medications Sodium Chloride (Nss 1000ml) 1,000 mls @ 999 mls/hr IV .Q1H1M ONE Stop: 10/11/20 02:20 Last Infusion: 10/11/20 03:19 Dose: 0 mls/hr Documented by: [id number] Admin: 10/11/20 01:32 Dose: 999 mls/hr Documented by: [id number] Ampicillin Sodium/Sulbactam Sodium 3,000 mg/ Sodium Chloride 108 mls @ 200 mls/hr IV NOW STA; Protocol Stop: 10/11/20 02:01 Last Infusion: 10/11/20 03:19 Dose: 0 mls/hr Documented by: [id number] Admin: 10/11/20 02:27 Dose: 200 mls/hr Documented by: [id number] Morphine Sulfate (Morphine Sulfate 10 Mg/Ml Carp/Vial) 8 mg IV NOW STA Stop: 10/11/20 01:21 Last Admin: 10/11/20 01:31 Dose: 8 mg Documented by: [id number] Nicotine (Nicotine 14 Mg/24 Hr Patch) 14 mg TD NOW STA Stop: 10/11/20 01:21 Last Admin: 10/11/20 01:31 Dose: 14 mg Documented by: [id number] Ondansetron HCl (Ondansetron Inj 2 Mg/Ml 2 Ml Vial) 4 mg IV NOW STA Stop: 10/11/20 01:21 Last Admin: 10/11/20 01:31 Dose: 4 mg Documented by: [id number] Discharge Plan Visit Data Chief Complaint: Facial Injury/Pain Stated Complaint: LUMP OR LT. SIDE OF FACE/PAINFUL ED Provider: Hollis Valente Discharge Problem: Abscess of parotid gland, Abscess of neck Patient Disposition: Admitted As Inpatient Discharge Instructions Interventions: ED Discharge Assessment Last Done: 10/11/20 02:32
[2020-10-11] MEDS ORDERED: AMPICILLIN/SULBACTAM SOD 3,000 MG in 0.9 % SODIUM CHLORIDE 100 ML IV STA (01:29)
[2020-10-11 01:46] LABS: Basophils # (auto) 0.01 K/uL (0-0.2); Eosinophils # (auto) 0.09 K/uL (0-0.5); Eosinophils % (auto) 0.4 %; Hemoglobin 10.1 g/dL (14.0-18.0); Immature Granulocytes % (auto) 0.5 %; Lymphocytes # (auto) 1.13 K/uL (1.2-3.4); Lymphocytes % (auto) 5.4 %; Mean Corpuscular Hemoglobin 31.9 pg (25-34); Mean Corpuscular Hgb Conc 34.8 g/dL (32-36); Mean Corpuscular Volume 91.5 fL (80-100); Mean Platelet Volume 8.9 fL (7.4-10.4); Monocytes # (auto) 0.84 K/uL (0.11-0.59); Monocytes % (auto) 4.1 %; Neutrophils # (auto) 18.57 K/uL (1.4-6.5); Neutrophils % (auto) 89.6 %; Platelet Count 417 K/uL (130-400); RDW Coefficient of Variation 13.8 % (11.5-14.5); Red Blood Count 3.17 M/uL (4.7-6.1); White Blood Count 20.74 K/uL (4.8-10.8)
[2020-10-11 01:58] LABS: INR 1.2 (0.9-1.1); Partial Thromboplastin Time 25.9 Seconds (21.0-31.0); Prothrombin Time 11.8 Seconds (9.0-12.0)
[2020-10-11 02:10] LABS: BUN Creatinine Ratio 23.4 (10-20); C Reactive Protein 3.17 mg/dl (0-0.29); Calcium 6.6 mg/dl (8.5-10.1); Creatinine Clr Calc Pharmacy 118.4 ml/min; Est GFR (African American) 126.2 ml/min; Est GFR (Non-African American) 108.9 ml/min; Potassium 3.6 mmol/L (3.5-5.1)
--- NOTE | 2020-10-11 02:13 | History & Physical Report ---
Date of Service October 11, 2020 Assessment & Plan (1) Parotid abscess: Mr. Porter is a 50 yo gentleman who returned to the ED after signing himself out AMA for further management of a left sided parotid gland abscess. (1) Parotid abscess: Admit- NPO until evaluated by ENT - may have sips of water and medications - Lemon wedges to assist with salivation - Unasyn 1.5 GM IV q6 hours - Tylenol and Ice for pain (2) Cellulitis: Surrounding erythema- and tenderness from parotiditis noted above - CK sent to evaluate for concern of myositis - Unasyn as above (3) Sepsis: SIRS- 2; qSOFA- 0 - Tachycardic with elevated WBC, NLR 7:1 - Blood cultures drawn prior to antibiotics - Lactate pending - CRP 2.13, ESR 59 - Hemodynamics improved on evaluation in the EMD - MAPS >65 (4) DMII (diabetes mellitus, type 2): Controlled- on oral agents - Hold Metformin/Glipizide - ACHS glucose checks- Add subq coverage if >200 and/or when patient starts eating - NPO as above (5) HLD (hyperlipidemia): Continue Atorvastatin 40 mg daily (6) HTN (hypertension): Continue Lisinopril, HCTZ - If hemodynamic status changes will hold - currently well perfused (7) Hypocalcemia: Likely related to poor intake in the setting of his oral infection - Concurrent with low ablumin, low sodium, and low albumin- Corrected 8.4 - LR at 80 ml per hour (8) Hyponatremia: As above (9) Bipolar disorder: Bipolar Vs Depression history- no records, Denies any suicidal ideations or psychological breaks - Continue Zoloft (10) Gout: No acute needs- Allopurinol on hold, follow renal function (11) Hypokalemia: Replace with potassium chloride 20 mEq p.o. x1 Follow BMP and magnesium Could be secondary to HCTZ (12) Elevated alkaline phosphatase level: Alkaline phosphatase in the 300s Could be due to to fatty liver, bony disease? Follow LFTs in the morning and if remains elevated, pursue further work-up but could be as an outpatient (13) Anemia: Hemoglobin 10.38, MCV 91 Could be chronic disease Check iron studies, folate, B12, TSH in the morning Follow-up as an outpatient (14) DVT prophylaxis: SCDs only for now in case of need for surgery tomorrow Dispo: Med/Surg with tele (given tachycardia) Code: Full History of Present Illness Primary Care Provider: Elvia Rawls PA-C 50 yo M who was admitted yesterday for acute parotid gland abscess and overlying cellulitis returns to the ED after briefly signing himself out AMA. Below is the history from admission evening of 10/10/20: The patient comes in to the EMD today for a week history of left sided mouth/jaw pain, he has noted that his left side of his face and neck have been more tender to chew with and to palpation. He also noticing the area of his cheek getting larger. He denies any fevers or chills, but does endorse increase in left eye lacrimation. he denies any bad tastes in mouth or drainage inside his mouth or throat. He has not tried anything to make this better. In the EMD the patient had a CT with IV contrast of his neck done, which revealed enlargement of the left sternocleidomastoid muscle, with peripheral enhancement as well as a left parotiditis. The EMD provider has consulted ENT Dr. Huerta and he was given 3GM Unasyn in the EMD. The patient will be admitted to the hospitalist service, continue IV ABX, NPO, and following clinical response. The patient is staying in and out of hotels as he "does not want to go to his house". He has not gotten his COVID vaccine. COVID test pending in the EMD. ------ The patient states he went back to his hotel room and initially felt comfortable, but ultimately felt foolish for leaving the hospital when his pain increased again. He then decided to return to [facility] for care. Of note, patient has not yet re-established care with a new PCP in [facility] - he may qualify for care at [facility]. Allergies Allergy/AdvReac Type Severity Reaction Status Date / Time No Known Allergies Allergy Unverified 10/10/20 10:18 Home Medications Medication Instructions Recorded Confirmed Type gabapentin 800 mg PO TID 08/30/18 10/11/20 History glipizide 5 mg PO BID 08/30/18 10/11/20 History hydrochlorothiazide 12.5 mg PO QAM 10/02/20 10/11/20 History lisinopril [Zestril] 20 mg PO QAM 10/02/20 10/11/20 History sertraline [Zoloft] 100 mg PO HS 10/02/20 10/11/20 History omeprazole 40 mg PO DAILY 10/10/20 10/11/20 History allopurinol 100 mg PO DAILY 10/11/20 10/11/20 History atorvastatin 20 mg PO DAILY 10/11/20 10/11/20 History Past Med/Surg History Medical History Bipolar disorder DMII (diabetes mellitus, type 2) Gout HLD (hyperlipidemia) HTN (hypertension) Family History Father Cancer Diabetes Dyslipidemia Mother Cancer Diabetes Other COPD (chronic obstructive pulmonary disease) Coronary heart disease Hypertension Social History Smoking Status: Current every day smoker Tobacco Type: Cigarettes Second Hand Exposure: Yes; Hx Alcohol Use: Yes Hx Substance Use: No Preferred Language: Sinhala Communication Ability: Effective Beliefs That Will Affect Care: None marital status: Single Current Living Situation: Other Current Living Situation Comment: hotel current occupational status: employed Feels Safe at Home: Yes Assistive Devices: None Review of Systems Eyes: + lacrimation to left eye Ear, Nose, Mouth, Throat: + oral pain Physical Exam Constitutional: WD/WN, vitals as above + acute distress and cooperative Eyes: + anicteric sclerae ENMT: Ears: no hearing impairment Nose: no external nose abnormality Mouth: + poor dentition + left jaw swelling and overlying erythema + tenderness to palpation + skin is indurated + submandibular and anterior cervical LAD Neck: trachea midline Respiratory: normal respiratory effort, lungs clear to auscultation Cardiovascular: Rate/Rhythm: regular rhythm and + tachycardic Heart Sounds: normal S1 and normal S2 Extremities: no pedal edema Gastrointestinal (Abdomen): normal bowel sounds, soft, nontender, no hepatosplenomegaly Skin: no rashes, warm and dry Psychiatric: A+Ox3, euthymic affect Results & Data Results & Data ([facility]) Vital Signs (Past 12 Hours) Vital Signs Temp Pulse Resp BP Pulse Ox 10/11/20 00:40 36.4 C L 112 H 20 122/80 98 Supervising Physician Co-Signing Physician Notes Attending addendum: I have physically seen this patient, have supervised the medical residents activities, and agree with the H&P unless as otherwise noted. Assessment and Plan: Parotid gland abscess- Readmitted now after he left AMA earlier in the day. To be assessed by ENT Continue Unasyn 1.5 g IV every 6 hours Diabetes mellitus- NPO Hold Metformin and glipizide Placed on Accu-Cheks before meals and at bedtime with NovoLog coverage per scale Check hemoglobin A1c if not done at the previous admission Remaining orders and notations as noted Resident Activity Tracking Resident Involvement: Resident Care Provided Care Provided: Adult Hospital Medicine
[2020-10-11] MEDS ORDERED: ONDANSETRON INJ 2 MG/ML 2 ML VIAL IV PRN (02:50)
[2020-10-11] MEDS ORDERED: MoRPHine SULFATE 2 MG/ML CARP IV PRN ×3 (02:50→07:25)
[2020-10-11] MEDS ORDERED: ACETAMINOPHEN 1000 MG/100 ML IV IV PRN (03:42)
[2020-10-11] MEDS ORDERED: ACETAMINOPHEN 1,000 MG/100 ML VIAL IV PRN (04:00)
--- NOTE | 2020-10-11 07:01 | Hospitalist Progress Note ---
Date of Service October 11, 2020 Assessment & Plan (1) Parotid abscess: Mr. Porter is a 50 yo gentleman who returned to the ED after signing himself out AMA for further management of a left sided parotid gland abscess. (1) Parotid abscess: Admit- NPO until evaluated by ENT - may have sips of water and medications - Lemon wedges to assist with salivation - Unasyn 1.5 GM IV q6 hours - Tylenol and Ice for pain (2) Cellulitis: Surrounding erythema- and tenderness from parotiditis noted above - CK sent to evaluate for concern of myositis - Unasyn as above (3) Sepsis: SIRS- 2; qSOFA- 0 - Tachycardic with elevated WBC, NLR 7:1 - Blood cultures drawn prior to antibiotics - Lactate pending - CRP 2.13, ESR 59 - Hemodynamics improved on evaluation in the EMD - MAPS >65 (4) DMII (diabetes mellitus, type 2): Controlled- on oral agents - Hold Metformin/Glipizide - ACHS glucose checks- Add subq coverage if >200 and/or when patient starts eating - NPO as above (5) HLD (hyperlipidemia): Continue Atorvastatin 40 mg daily (6) HTN (hypertension): Continue Lisinopril, HCTZ - If hemodynamic status changes will hold - currently well perfused (7) Hypocalcemia: Likely related to poor intake in the setting of his oral infection - Concurrent with low ablumin, low sodium, and low albumin- Corrected 8.4 - LR at 80 ml per hour (8) Hyponatremia: As above (9) Bipolar disorder: Bipolar Vs Depression history- no records, Denies any suicidal ideations or psychological breaks - Continue Zoloft (10) Gout: No acute needs- Allopurinol on hold, follow renal function (11) Hypokalemia: Replace with potassium chloride 20 mEq p.o. x1 Follow BMP and magnesium Could be secondary to HCTZ (12) Elevated alkaline phosphatase level: Alkaline phosphatase in the 300s Could be due to to fatty liver, bony disease? Follow LFTs in the morning and if remains elevated, pursue further work-up but could be as an outpatient (13) Anemia: Hemoglobin 10.38, MCV 91 Could be chronic disease Check iron studies, folate, B12, TSH in the morning Follow-up as an outpatient (14) DVT prophylaxis: SCDs only for now in case of need for surgery tomorrow Dispo: Med/Surg with tele (given tachycardia) Code: Full Admission and Anticipated Discharge Date Admission Date: October 11, 2020 Results & Data Results & Data ([facility]) Vital Signs (Past 12 Hours) Vital Signs Temp Pulse Pulse Resp BP BP Pulse Ox 10/11/20 03:24 36.7 C 94 H 16 120/81 98 10/11/20 02:28 36.4 C L 85 20 138/86 98 10/11/20 00:40 36.4 C L 112 H 20 122/80 98
[2020-10-11 08:10] LABS: Hematocrit (blood only) 30.5 % (42-52); Hemoglobin 10.4 g/dL (14.0-18.0); Mean Corpuscular Hemoglobin 31.6 pg (25-34); Mean Corpuscular Hgb Conc 34.1 g/dL (32-36); Mean Corpuscular Volume 92.7 fL (80-100); Mean Platelet Volume 8.7 fL (7.4-10.4); Platelet Count 426 K/uL (130-400); RDW Standard Deviation 47.4 fL (36.4-46.3); Red Blood Count 3.29 M/uL (4.7-6.1); White Blood Count 23.31 K/uL (4.8-10.8)
[2020-10-11 08:31] LABS: Basophils # (auto) 0.02 K/uL (0-0.2); Basophils % (auto) 0.1 %; Eosinophils # (auto) 0.14 K/uL (0-0.5); Eosinophils % (auto) 0.6 %; Immature Granulocytes # (auto) 0.17 K/uL (0.00-0.02); Immature Granulocytes % (auto) 0.7 %; Lymphocytes # (auto) 1.68 K/uL (1.2-3.4); Lymphocytes % (auto) 7.2 %; Monocytes % (auto) 4.3 %; Neutrophils % (auto) 87.1 %
[2020-10-11 08:38] LABS: Ferritin 168.6 ng/ml (8-388); Thyroid Stimulating Hormone 1.24 uIu/ml (0.300-4.500)
[2020-10-11] MEDS ORDERED: ATORVASTATIN 20 MG TAB PO SCH (09:00)
[2020-10-11] MEDS ORDERED: lisinopril 20 MG TAB PO SCH (09:00)
[2020-10-11] MEDS ORDERED: hydroCHLOROthiazide 25 MG TAB PO SCH (09:00)
[2020-10-11] MEDS ORDERED: NICOTINE 14 MG/24 HR PATCH TD SCH (09:00)
[2020-10-11] MEDS ORDERED: PANTOprazole 40 MG TAB PO SCH (09:00)
[2020-10-11] MEDS: GABAPENTIN 800 MG TAB PO SCH ×2 (09:20→13:15)
[2020-10-11] MEDS: AMPICILLIN/SULBACTAM SOD 1,500 MG in 0.9 % SODIUM CHLORIDE 100 ML IV SCH ×2 (09:22→13:39)
--- NOTE | 2020-10-11 10:57 | Hospitalist Progress Note ---
Date of Service October 11, 2020 Assessment & Plan (1) Parotid abscess: Mr. Porter is a 50 yo male with PMHx significant for T2DM, HTN, HLD, and Bipolar vs Depression who was re-admitted to [facility] on 10/11, after signing out AMA, for further management of a left SCM abscess +/- left parotid gland abscess. Left SCM/Parotid Gland abscess Findings per CT neck. Per exam this morning, in addition to uptrending CRP (2 -->3) and elevated ESR 59, suspect spread of infection to superficial tissue of neck/chest (i.e. necrotizing fasciitis) vs deeper spread such as mediastinitis. - ENT consulted - appreciate recs - scheduled for I&D today with Dr. Huerta - NPO for surgery - Continue Unasyn 1.5g IV Q6H - Tylenol and Ice PRN for pain Left Parotid Gland Lesion - findings per CT neck: 1.5cm cystic focus within left parotid gland likely representing left parotid gland lesion such as Rigoberto's tumor - recommend f/u CT neck in 3 months, after resolution of infection Normocytic Anemia Hgb 10.38, MCV 91, iron 12 (L), ferritin 168.6 (WNL), Transferrin 147 (L). Vitamin B12/Folate WNL. Suspect iron-deficiency anemia vs blood loss anemia vs anemia of chronic disease. Requires further eval. - FOBT ordered - pending - recommend repeat iron studies as outpatient, after infection resolves T2DM - Controlled on oral agents - Hold Metformin/Glipizide - ACHS glucose checks- Add subq coverage if >200 and/or when patient starts eating - NPO as above HLD - Continue Atorvastatin 40 mg daily HTN - Continue home Lisinopril, HCTZ - If hemodynamic status changes will hold - currently well perfused Hypocalcemia Corrected is 8.4. Likely related to poor intake in the setting of his infection - continue to monitor daily Hyponatremia Sodium 135. Suspect related to poor intake as well as possible mild dehydration from infection. - continue to monitor daily Unspecified Mood Disorder Bipolar vs Depression history with multiple psychiatric hospitalizations as well as extensive SSRI/mood-stabilizer/antipsychotic med trials, per patient report. No records. Difficult to make diagnosis given alcohol use. Requires further evaluation. 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 - Continue home Zoloft for now - will referral to [facility] for evaluation after discharge Gout No acute needs. - Allopurinol on hold, follow renal function Elevated alkaline phosphatase Alkaline phosphatase in the 300s. Could be due to to fatty liver vs bony disease. - trend LFTs in the AM, further evaluation if continues to be elevated Alcohol/tobacco abuse - counseled on cessation - recommend outpatient f/u, [facility] would be beneficial as mentioned above FEN/GI: NPO pending surgery DVT ppx: SCDs, no pharmacologic therapy given upcoming surgery Dispo: Med/Surg with tele Code: Full code Admission and Anticipated Discharge Date Admission Date: October 11, 2020 Supervising Physician Co-Signing Physician Notes Resident Physician Supervision Note: I independently interviewed and examined the patient and verified the sampson history and physical, reviewed labs and image studies and agree with resident Dr. Boo findings and care plan. Subjective No acute events overnight. Got Morphine 2mg IV x1 this AM for left-sided neck pain. The patient reports worsening L face/neck pain for more than one week. Denies recent dental procedures, lacerations, or skin infections. Reports that pain is currently worsening and reports spread of pain down left side of neck to left chest. Denies fever/chills, chest pain, palpitations, SOB, cough, N/V, other rash. Psych hx: Reports several previous psychiatric hospitalizations, previous diagnoses of anxiety/panic/Bipolar, previous trials of SSRIs/mood stabilizers/antipsychotics. Not seeing PCP regularly and does not see psychiatrist. Takes Sertraline currently. 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 Alcohol use: ~12-16 drinks per week. 30 pack year smoking history. Denies other drug use. Review of Systems Review of Systems: Pertinent positives and negatives mentioned in HPI. Physical Exam Physical Exam: General: A&Ox3. Cooperative. In mild distress, appears to be in pain. HEENT: Left-sided face swelling over parotid gland as well as left-sided neck swelling, erythema over face/neck that extends to mid-left chest, severe tenderness to light touch along all of these areas, no crepitus appreciated. There is swelling of posterior oropharynx without tonsillar abnormalities Pulm: CTAB A&P. -wheezes, -rales, -rhonchi. Symmetrical chest rise. No increase work of breathing. No respiratory distress. Cardiac: RRR, -mrg. Radial pulses intact and symmetrical. Abdominal: soft, non-tender, non-distended, BS x 4 Skin: warm, dry, no rash Results & Data Results & Data ([facility]) Vital Signs (Past 12 Hours) Vital Signs Temp Pulse Pulse Resp BP BP Pulse Ox 10/11/20 07:04 95 H 10/11/20 07:01 36.6 C 95 H 18 125/86 100 10/11/20 03:24 36.7 C 94 H 16 120/81 98 10/11/20 02:28 36.4 C L 85 20 138/86 98 10/11/20 00:40 36.4 C L 112 H 20 122/80 98 Resident Activity Tracking Resident Involvement: Resident Care Provided Care Provided: Adult Hospital Medicine
[2020-10-11] MEDS ORDERED: LIDOCAINE 2%/EPINEPHRINE 1:100,000 20ML ONE (12:44)
[2020-10-11] MEDS ORDERED: BACITRACIN OINT 15 GM TUBE ONE (12:44)
--- NOTE | 2020-10-11 15:16 | Discharge Summary ---
Date of Service October 11, 2020 Admission HPI Per Admitting Provider 50 yo M who was admitted yesterday for acute parotid gland abscess and overlying cellulitis returns to the ED after briefly signing himself out AMA. Below is the history from admission evening of 10/10/20: The patient comes in to the EMD today for a week history of left sided mouth/jaw pain, he has noted that his left side of his face and neck have been more tender to chew with and to palpation. He also noticing the area of his cheek getting larger. He denies any fevers or chills, but does endorse increase in left eye lacrimation. he denies any bad tastes in mouth or drainage inside his mouth or throat. He has not tried anything to make this better. In the EMD the patient had a CT with IV contrast of his neck done, which revealed enlargement of the left sternocleidomastoid muscle, with peripheral enhancement as well as a left parotiditis. The EMD provider has consulted ENT Dr. Huerta and he was given 3GM Unasyn in the EMD. The patient will be admitted to the hospitalist service, continue IV ABX, NPO, and following clinical response. The patient is staying in and out of hotels as he "does not want to go to his house". He has not gotten his COVID vaccine. COVID test pending in the EMD. ------ The patient states he went back to his hotel room and initially felt comfortable, but ultimately felt foolish for leaving the hospital when his pain increased again. He then decided to return to [facility] for care. Of note, patient has not yet re-established care with a new PCP in [facility] - he may qualify for care at [facility]. Admission Exam Per Admitting Provider Constitutional: WD/WN, vitals as above + acute distress and cooperative Eyes: + anicteric sclerae ENMT: Ears: no hearing impairment Nose: no external nose abnormality Mouth: + poor dentition + left jaw swelling and overlying erythema + tenderness to palpation + skin is indurated + submandibular and anterior cervical LAD Neck: trachea midline Respiratory: normal respiratory effort, lungs clear to auscultation Cardiovascular: Rate/Rhythm: regular rhythm and + tachycardic Heart Sounds: normal S1 and normal S2 Extremities: no pedal edema Gastrointestinal (Abdomen): normal bowel sounds, soft, nontender, no hepatosplenomegaly Skin: no rashes, warm and dry Psychiatric: A+Ox3, euthymic affect Principal Diagnosis Left SCM Abscess Left Parotid Gland Abscess Discharge Exam General: A&Ox3. Cooperative. In mild distress, appears to be in pain. HEENT: Left-sided face swelling over parotid gland as well as left-sided neck swelling, erythema over face/neck that extends to mid-left chest, severe tenderness to light touch along all of these areas, no crepitus appreciated. There is swelling of posterior oropharynx without tonsillar abnormalities Pulm: CTAB A&P. -wheezes, -rales, -rhonchi. Symmetrical chest rise. No increase work of breathing. No respiratory distress. Cardiac: RRR, -mrg. Radial pulses intact and symmetrical. Abdominal: soft, non-tender, non-distended, BS x 4 Skin: warm, dry, no rash Discharge Data Allergies Allergy/AdvReac Type Severity Reaction Status Date / Time No Known Allergies Allergy Unverified 10/10/20 10:18 Consultations 10/11/20 01:28 ED Decision to Admit Stat 10/11/20 02:50 Consult Otolaryngology (Head and Neck) Routine Procedures Performed Operation Date: 10/11/20 12:05 <No data on this case meets the specified criteria> Hospital Course (1) Parotid abscess: Mr. Porter is a 50 yo male with PMHx significant for T2DM, HTN, HLD, and Bipolar vs Depression who was re-admitted to [facility] on 10/11, after signing out AMA, for further management of a left SCM abscess +/- left parotid gland abscess. ENT recommended I&D on 10/11 but patient left against medical advice. Left SCM/Parotid Gland abscess Findings per CT neck. Per exam this morning, in addition to uptrending CRP (2 -->3) and elevated ESR 59, suspect spread of infection to superficial tissue of neck/chest (i.e. necrotizing fasciitis) vs deeper spread such as mediastinitis. - was started on Unasyn 1.5g IV Q6H - ENT consulted - appreciate recs - scheduled for I&D on 10/[address] Huerta - patient left against medical advice before surgery - he left before a physician was able to do a capacity evaluation or speak to him about his reasoning for leaving AMA Left Parotid Gland Lesion - findings per CT neck: 1.5cm cystic focus within left parotid gland likely representing left parotid gland lesion such as Adams's tumor - recommend f/u CT neck in 3 months, after resolution of infection Normocytic Anemia Hgb 10.38, MCV 91, iron 12 (L), ferritin 168.6 (WNL), Transferrin 147 (L). Vitamin B12/Folate WNL. FOBT positive - suspect chronic GI blood loss anemia - recommend colonoscopy as outpatient for further evaluation - recommend repeat iron studies as outpatient, after infection resolves Unspecified Mood Disorder Bipolar vs Depression history with multiple psychiatric hospitalizations as well as extensive SSRI/mood-stabilizer/antipsychotic med trials, per patient report. No records. Difficult to make diagnosis given alcohol use. Requires further evaluation. 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 - Continue home Zoloft for now - recommend referral to [facility] for evaluation after discharge Alcohol/tobacco abuse - counseled on cessation - recommend outpatient f/u, [facility] would be beneficial as mentioned above Total Time Total Time Spent Total Time Spent (In Minutes): 20 minutes Total Time Includes: Examination of the Patient Discharge Plan Discharge Items Patient Disposition: Against Medical Advice Reason For Visit: PAROTID GLAND ABSCESS Activity: Per Instructions section Non-emergency contact: Primary Care Provider Follow-up/Referrals: Elvia Rawls PA-C [Primary Care Provider] - Pending Studies at Discharge: No Stand-Alone Forms: My [facility], Smoking Cessation Skilled Items Patient informed of condition?: Yes DNR: No Discharge Level of Care: Other Communicable Disease: No Discharge Prognosis: Deteriorating Medications and DC Order Prescriptions: Continued glipizide 5 mg Tablet 5 mg PO BID RF: 0 gabapentin 800 mg Tablet 800 mg PO TID RF: 0 omeprazole 40 mg capsule,delayed release(DR/EC) 40 mg PO DAILY RF: 0 atorvastatin 20 mg tablet 20 mg PO DAILY RF: 0 allopurinol 100 mg tablet 100 mg PO DAILY RF: 0 lisinopril [Zestril] 20 mg tablet 20 mg PO QAM RF: 0 sertraline [Zoloft] 100 mg tablet 100 mg PO HS RF: 0 hydrochlorothiazide 12.5 mg capsule 12.5 mg PO QAM RF: 0 Discharge Orders: Left Against Medical Advice (Routine); Ordered 06/29/21 Ordered By: Hollis Boo Admission Data Admit Date/Time: 10/11/20 01:55 Attending Provider: Vicki Srivastava Admit Provider: Alisha Jordan Primary Care Provider: Elvia Rawls Other Providers: Luiz Melgar ; Salina Huerta How Other Interventions: Discharge Summary Assessment (RN) Last Done: 10/11/20 15:18 Supervising Physician Co-Signing Physician Notes Resident Physician Supervision Note: I independently interviewed and examined the patient and verified the sampson history and physical, reviewed labs and image studies and agree with resident Dr. Boo findings and care plan. Resident Activity Tracking Resident Involvement: Resident Care Provided Care Provided: Adult Hospital Medicine
[2020-10-11] MEDS ORDERED: SERTRALINE HCL 100 MG TABLET PO SCH (21:00)
--- NOTE | 2020-10-12 04:32 | Billing Data ---
Date of Service October 12, 2020 Coding Level of Care Code 39308 Initial Inpt Care Lvl 2
== END 2020-10-11 15:28 | disposition left against medical advice (07) ==
LOC: ED 00:27 → INTOOBSV 01:55 → SUATTDRO 01:55 → 2N 01:55